=== PATIENT | male | born 2000 | race African-American/Black ===

== ENCOUNTER 2019-05-13 07:36 | Emergency (ER) | payer SELFPAY ==
[~2019-05-13] VITALS: Ht 177.8 cm; Wt 68.0 kg
[~2019-05-13 07:36] MED LIST: BENADRYL CRE1 APPLIC TOPIC; CLOTRIMAZOLE AF30 GM TOPIC; KEFLEX500 MG ORAL; NKM; [UNRECOGNIZED DRUG - CODE] PO
--- NOTE | 2019-05-13 08:03 | NUR ---
ED Nurse Note: Pt walked into ED w/ c/o cough, sore throat and neck stiffness for 2 days. Posterior neck pain is 8/10. Pt is alert and orientedx4, ambulatory. Pt denies nausea, vomiting, diarrhea. Pt has not been out of the country in the past few months.
--- NOTE | 2019-05-13 08:08 | Emergency Room Report ---
History of Present Illness General Chief Complaint: Sore Throat Source: Patient Present Illness HPI Patient presents with 2 days of increased left-sided throat pain. He is also having trouble opening up his mouth fully. In addition to that his voice is changed somewhat. He does have some difficulty swallowing but is able to tolerate liquids. When he swallows there is more pain in the throat. He rates the pain 8/10 and aching and sharp. Patient denies fevers or chills. No chest pain, palpitations, nausea, vomiting, diarrhea, dysuria, abdominal pain , shortness of breath, rashes, anxiety, visual changes, dizziness, headache. Allergies: Coded Allergies: No Known Allergies (Unverified , 12/11/11) Patient History Past Medical History: see triage record Social History: Denies: smoking, alcohol use, drug use Social History Narrative Lives with grandmother, supposed to work today. Reviewed Nursing Documentation: PMH: Agreed; PSxH: Agreed Nursing Documentation-PMH Past Medical History: No Stated History Review of Systems All Other Systems: negative except mentioned in HPI Physical Exam Vital Signs Date Time Temp Pulse Resp B/P (MAP) Pulse Ox O2 Delivery O2 Flow Rate FiO2 05/13/19 07:45 98.8 85 16 117/75 (89) 98 Room Air Sp02 EP Interpretation: reviewed, normal General Appearance: well appearing, no apparent distress, GCS 15 Head: normocephalic Eyes: bilateral eye normal inspection, bilateral eye PERRL, bilateral eye EOMI ENT: TMs + canals normal, uvula midline, tonsillar swelling - Left-sided, pharyngeal erythema, other - Hypophonia Neck: full range of motion, supple, tender - Left anterior Respiratory: chest non-tender, lungs clear, normal breath sounds Cardiovascular #1: regular rate, rhythm Cardiovascular #2: 2+ radial (R) Gastrointestinal: normal inspection Musculoskeletal: gait/station normal Neurologic: alert, grossly normal Psychiatric: mood/affect normal Skin: no rash, warm/dry Lymphatic: adenopathy - Cervical Medical Decision Making Diagnostic Impression: Primary Impression: Peritonsillar abscess ER Course Patient presents with throat pain. By his clinical exam he has a peritonsillar abscess. Based on the exam this is not ready for incision and drainage and may improve without incision and drainage. IV antibiotics and steroids are indicated. In addition to that the patient will be given a dose of Toradol. There is no airway compromise at this time. Pain improving and voice improving after steroids. 09/05 at this time. Tylenol ordered. Patient tolerating oral intake. Discussed outpatient observation with patient. Discussed possible need for incision and drainage but this is doubtful. Patient understands treatment plan. Patient stable for close outpatient observation and treatment. Last Vital Signs Date Time Temp Pulse Resp B/P (MAP) Pulse Ox O2 Delivery O2 Flow Rate FiO2 05/13/19 09:46 98.5 82 18 116/71 99 Room Air Status: improved Disposition: HOME, SELF-CARE Condition: Improved Scripts Acetaminophen Children's* (TYLENOL CHILDREN'S *) 160 Mg/5 Ml Oral.susp 30 ML ORAL Q4H PRN for fever or pain, #200 ML Prov: Jd Weems MD 05/13/19 Cephalexin* (KEFLEX*) 250 Mg/5 Ml Susp.recon 10 ML ORAL FOUR TIMES A DAY, #280 ML 0 Refills Prov: Jd Weems MD 05/13/19 Lidocaine HCl 2% Viscous (Lidocaine HCl 2% Viscous) 100 Ml Solution 10 ML ORAL QID, #60 ML Prov: Jd Weems MD 05/13/19 Jd Weems MD May 13, 2019 08:08
[2019-05-13] MEDS ORDERED: LIDOCAINE VISC100 ML ORAL (08:11)
[2019-05-13] MEDS ORDERED: CEPHALEXIN500 MG ORAL ×2 (08:11)
[2019-05-13] MEDS ORDERED: Solu-MEDROL 125mg Inj IVP ONE (08:15)
[2019-05-13] MEDS ORDERED: Ketorolac 30mg Inj IV ONE (08:15)
[2019-05-13] MEDS ORDERED: cefTRIAXone 1 GM in NS 55 ML IVPB ONE (08:15)
[2019-05-13 08:20] VITALS: BP 115/79
[2019-05-13] MEDS ORDERED: Acetaminophen Soln 160mg/5ml ORAL ONE (09:00)
[2019-05-13] MEDS ORDERED: CHILDREN'S160 MG/56 ORAL (09:15)
[2019-05-13] MEDS ORDERED: CEPHALEXIN250 MG/5 M ORAL (09:15)
[2019-05-13 09:46] VITALS: BP 116/71
--- NOTE | 2019-05-13 09:46 | NUR ---
ER DISCHARGE NOTE: Patient is cleared to be discharged per ERMD, pt is aox4, on room air, with stable vital signs. pt was given dc and prescription instructions, pt was able to verbalize understanding, pt id band and iv site removed without complications. pt is able to ambulate with steady gait. pt took all belongings. Pt educated about peritonsillar abscess.
== END 2019-05-13 09:45 | disposition home or self-care (01) ==
LOC: EMR 09:16
DX: L02.91 Cutaneous abscess, unspecified (principal)
CPT/HCPCS: 96361; 96365; 96375; 99284; J0696; J1885; J2930; J7030

== ENCOUNTER 2019-08-28 12:51 | Emergency (ER) | payer SELFPAY ==
[~2019-08-28] VITALS: Ht 177.8 cm; Wt 72.6 kg
[~2019-08-28 12:51] MED LIST changes: +CEPHALEXIN250 MG/5 M ORAL; +CEPHALEXIN500 MG ORAL; +CHILDREN'S160 MG/56 ORAL; +LIDOCAINE VISC100 ML ORAL
[2019-08-28 12:59] VITALS: BP 117/84
--- NOTE | 2019-08-28 12:59 | NUR ---
ED Nurse Note: Patient walked into ED from home c/o rash on right testicles x 3 days. Denies pain/ discharges/ itchiness. Denies dysuria, urinary frequency and urgency. No SOB. VSS.
[2019-08-28] MEDS ORDERED: NIZORAL 2% C1 APPLIC TOPIC (13:13)
[2019-08-28] MEDS ORDERED: FLUCONAZOLE150 MG ORAL (13:13)
[2019-08-28 13:16] VITALS: BP 117/84
--- NOTE | 2019-08-28 13:16 | NUR ---
ED Nurse Note: Pt cleared by ERMD for discharge. DC instructions was given and explained to pt and verbalized understanding of teachings. prescription sent electronically. All medical deviecs such as ID band removed. Pt is AAO x4, ambulatory and left with all personal belongings.
--- NOTE | 2019-08-28 13:19 | Emergency Room Report ---
History of Present Illness General Chief Complaint: Male Urogenital Problems Source: Patient Present Illness HPI Disclaimer: Please note that this report is being documented using DRAGON technology. This can lead to erroneous entry secondary to incorrect interpretation by the dictating instrument. HPI: 18-year old male presents for evaluation of rash on his genital region. Patient noted 3 discolorations over the skin of the shaft of the penis 3 nights ago while showering. Denies pain, skin breakdown, ulceration, itching, weeping , skin sloughing. No vesicles noted. No prior history of STI. Last sexual contact was 3 months ago and the patient used condoms. No prior history of STI. Otherwise denies fever, chills, testicular pain, dysuria, hematuria, urethral discharge. Otherwise in his usual state of health no complaints. He was unable to see his PMD due to the closures in the city for COVID-19 and would not be able to follow-up for another month. PMH: Denied PSH: Denied Allergies: Denied Social Hx: Denied Allergies: Coded Allergies: No Known Allergies (Unverified , 12/11/11) COVID-19 Screening Contact w/high risk pt: No Recent Travel to affected area: No Experienced COVID-19 symptoms?: No COVID-19 Testing performed QUANTITATIVE MANAGER: No Nursing Documentation-PMH Past Medical History: No Stated History Review of Systems All Other Systems: negative except mentioned in HPI Physical Exam Vital Signs Date Time Temp Pulse Resp B/P (MAP) Pulse Ox O2 Delivery O2 Flow Rate FiO2 08/28/19 12:55 98.4 79 17 117/84 (95) 95 Room Air General: Awake and alert, no acute distress HEENT: NC/AT. EOMI. Resp: Normal work of breathing Abdomen: Soft, nontender, nondistended : Circumcised male. No discharge, bleeding or signs of trauma at the urethral meatus. Testes in anatomic position, nontender, no edema. 3 small circular, flat, regions of hypopigmentation on the base ff the penis. No vesicles, no skin sloughing, no edema, no erythema, nontender, no weeping. MSK: Normal tone and bulk. Moving all extremities. No obvious deformity. Neuro: Awake and alert. Mentating appropriately Medical Decision Making Diagnostic Impression: Primary Impression: Rash ER Course This a 18-year-old male presenting for evaluation of skin discoloration over the shaft of the penis. [place] includes was not limited to tinea vesicular, other fungal infection, condyloma, HSV, syphilis, STI otherwise. Patient's last extra count of 3 months ago and is otherwise been asymptomatic. Otherwise well-appearing, stable vital signs, no other complaints. Will treat for tinea infection with topical and oral antifungals and referred to outpatient STI clinic for testing for herpes, syphilis, HIV among others. Patient started to return to the emergency department follow-up with his PMD if symptoms fail to improve or worsen. He understands and agrees with treatment plan will be discharged home. Last Vital Signs Date Time Temp Pulse Resp B/P (MAP) Pulse Ox O2 Delivery O2 Flow Rate FiO2 08/28/19 12:59 98.4 78 17 117/84 95 Room Air Disposition: HOME, SELF-CARE Condition: Stable Scripts Fluconazole (FLUCONAZOLE) 150 Mg Tablet 150 MG ORAL ONCE, #2 TAB Prov: William Pope MD 08/28/19 Ketoconazole (Ketoconazole) 15 Gm Cream..g. 1 APPLIC TOPIC BEDTIME for 14 Days, #14 APPLIC Prov: William Pope MD 08/28/19 Referrals: [facility] *Patients are seen by appointment only* [facility] Patient Instructions: Genital Warts, Tinea Versicolor Additional Instructions: Please contact 1 of the STD clinics here for full STD testing including but not limited to HIV, syphilis, genital warts, herpes, hepatitis among others. Take the antifungal medication prescribed to you and use the antifungal shampoo for treatment of possible fungal infection. Follow-up with your primary medical doctor and ask for referral to dermatology if symptoms persist. Return to the emergency department any new or worsening symptoms. William Pope MD Aug 28, 2019 13:19
== END 2019-08-28 13:16 | disposition home or self-care (01) ==
LOC: EMR 13:10
DX: R21 Rash and other nonspecific skin eruption (principal)
CPT/HCPCS: 99282

== ENCOUNTER 2020-04-28 18:35 | Emergency (ER) | payer OTHER ==
[~2020-04-28] VITALS: Ht 175.3 cm; Wt 72.6 kg
[~2020-04-28 18:35] MED LIST changes: +FLUCONAZOLE150 MG ORAL; +NIZORAL 2% C1 APPLIC TOPIC
[2020-04-28 19:10] VITALS: BP 116/73
[2020-04-28] MEDS ORDERED: [UNRECOGNIZED DRUG - OTHER] MM (19:16)
[2020-04-28] MEDS ORDERED: IBUPROFEN600 M1 ORAL (19:16)
--- NOTE | 2020-04-28 19:19 | Emergency Room Report ---
History of Present Illness General Chief Complaint: Sore Throat Source: Patient Present Illness HPI Disclaimer: Please note that this report is being documented using [employer] technology. This can lead to erroneous entry secondary to incorrect interpretation by the dictating instrument. HPI: 19-year-old male presents for evaluation of sore throat. Symptoms present the past 3 days. He reports pain with swallowing but denies throat swelling, difficulty tolerating secretions, changes in his voice or speech. He reports nasal congestion, nonproductive intermittent cough and mild ear pressure. Denies fever or chills. Denies nausea or vomiting. Denies chest pain or shortness of breath. PMH: Denied PSH: Denied Allergies: Denied Social Hx: Denied Allergies: Coded Allergies: No Known Allergies (Unverified , 12/11/11) COVID-19 Screening Contact w/high risk pt: No Recent Travel to affected area: No Experienced COVID-19 symptoms?: Yes COVID-19 Testing performed NUCLEAR PHYSICIAN: No Nursing Documentation-PMH Past Medical History: No Stated History Review of Systems All Other Systems: negative except mentioned in HPI Physical Exam Vital Signs Date Time Temp Pulse Resp B/P (MAP) Pulse Ox O2 Delivery O2 Flow Rate FiO2 04/28/20 18:59 98.2 76 18 116/73 (87) 95 Room Air General: Awake and alert, no acute distress HEENT: NC/AT. EOMI. PERRLA. Uvula midline. Tonsils 1+ not obstructing. No edema or erythema. No exudate. No submandibular lymphadenopathy. Tympanic membranes are slightly hyperemic but nonbulging and no effusion. Resp: Normal work of breathing Skin: Intact. No abrasions, laceration or rash over the exposed skin MSK: Normal tone and bulk. Moving all extremities. No obvious deformity. Neuro: Awake and alert. Mentating appropriately Medical Decision Making Diagnostic Impression: Primary Impression: Pharyngitis ER Course 19-year-old male presents for evaluation of 3 days sore throat. Centor score is low. Believe is likely a viral source given the nasal congestion, ear pressure and mild cough. Will treat symptomatically and patient can return if his symptoms fail to improve or if they suddenly worsen. Do not believe he requires antibiotics at this time. He understands and agrees with the treatment plan will be discharged home. Last Vital Signs Date Time Temp Pulse Resp B/P (MAP) Pulse Ox O2 Delivery O2 Flow Rate FiO2 04/28/20 18:59 98.2 76 18 116/73 (87) 95 Room Air Disposition: HOME, SELF-CARE Condition: Stable Scripts Ibuprofen* (MOTRIN*) 600 Mg Tablet 600 MG ORAL Q6H PRN for For Pain, #30 TAB 0 Refills Prov: William Pope MD 04/28/20 Pectin (SORE THROAT RELIEF) 20 Mg Lozenge.hd 20 MG MM TID for 5 Days, #20 LOZENGE Prov: William Pope MD 04/28/20 Referrals: NON PHYSICIAN (PCP) [facility] Patient Instructions: Sore Throat Additional Instructions: Please follow-up with your primary care doctor in the next 1 to 3 days to discuss this emergency department visit and for reevaluation. If you have any new or worsening symptoms please return to the emergency department for reevaluation. Please note that this report is being documented using [employer] technology. This can lead to erroneous entry secondary to incorrect interpretation by the dictating instrument. William Pope MD Apr 28, 2020 19:19
[2020-04-28 19:20] VITALS: BP 116/73
[2020-04-28] MEDS ORDERED: CHLORASEPTIC1 SPRAY ORAL (19:20)
--- NOTE | 2020-04-28 19:20 | NUR ---
ER DISCHARGE NOTE: Patient is cleared to be discharged per ERMD, pt is aox4, on room air, with stable vital signs. pt was given dc and prescription instructions, pt was able to verbalize understanding, pt id band and iv site removed without complications. pt is able to ambulate with steady gait. pt took all belongings.
== END 2020-04-28 19:20 | disposition home or self-care (01) ==
LOC: EMR 18:55
DX: J02.9 Acute pharyngitis, unspecified (principal)
CPT/HCPCS: 99282